=== PATIENT | female | born 1960 | race Hispanic/Latino ===

== ENCOUNTER → 2018-02-18 | Outpatient (CLI) | payer OTHER ==
[~2018-02-18] MED LIST: ASPI-1197 PO; CLON2TAB21 PO; DIGO250T84 PO; ENAL20TA PO; FLUO-126 PO; PRAV20TA4 PO; VITA100T5 PO
== END | disposition home or self-care (01) ==
LOC: RAH 10:40
PROVIDERS: ATTEND Internal Medicine
DX: Z12.31 Encounter for screening mammogram for malignant neoplasm of breast (principal)
CPT/HCPCS: 77067

== ENCOUNTER → 2018-11-18 | Outpatient (CLI) | payer OTHER | END | disposition home or self-care (01) | LOC: RAH 09:43 | PROVIDERS: ATTEND Internal Medicine | DX: I50.22 Chronic systolic (congestive) heart failure (principal); I42.0 Dilated cardiomyopathy | CPT/HCPCS: 93306 ==

== ENCOUNTER → 2020-04-19 | Outpatient (CLI) | payer OTHER ==
[~2020-04-19] MED LIST changes: +DIGO250T73 PO; -DIGO250T84 PO; -FLUO-126 PO; +FLUO20CA35 PO
== END | disposition home or self-care (01) ==
LOC: RAH 13:06
PROVIDERS: ATTEND Internal Medicine
DX: R51 Headache (principal); M25.80 Other specified joint disorders, unspecified joint
CPT/HCPCS: 70450

== ENCOUNTER → 2020-10-29 | Outpatient (CLI) | payer OTHER ==
[~2020-10-29] MED LIST changes: -ENAL20TA PO; +ENAL20TA18 PO
[2020-10-29 10:21] LABS: CREATININE 0.7 mg/dL (0.5-1.5)
== END | disposition home or self-care (01) ==
LOC: LAB 09:46
PROVIDERS: ATTEND Psychiatry & Neurology Neurology
DX: D32.0 Benign neoplasm of cerebral meninges (principal)
CPT/HCPCS: 36415; 82565; 84520

== ENCOUNTER → 2020-11-01 | Outpatient (CLI) | payer OTHER ==
[~2020-11-01] MED LIST changes: +IOHEXOL-350 50ML VIAL IV ONE
== END | disposition home or self-care (01) ==
LOC: RAH 12:48
PROVIDERS: ATTEND Psychiatry & Neurology Neurology
DX: D32.0 Benign neoplasm of cerebral meninges (principal)
CPT/HCPCS: 70470; Q9967

== ENCOUNTER → 2020-12-13 | Outpatient (CLI) | payer OTHER ==
[~2020-12-13] MED LIST changes: -IOHEXOL-350 50ML VIAL IV ONE
== END | disposition home or self-care (01) ==
LOC: RAH 11:49
PROVIDERS: ATTEND Internal Medicine
DX: Z12.31 Encounter for screening mammogram for malignant neoplasm of breast (principal)
CPT/HCPCS: 77067

== ENCOUNTER → 2023-02-22 | Outpatient (CLI) | payer OTHER ==
[~2023-02-22] MED LIST changes: +ENAL-91 PO; -ENAL20TA18 PO; -FLUO20CA35 PO; +FLUO20CA36 PO
== END | disposition home or self-care (01) ==
LOC: RAH 12:48
PROVIDERS: ATTEND Internal Medicine
DX: Z12.31 Encounter for screening mammogram for malignant neoplasm of breast (principal)
CPT/HCPCS: 77067